=== PATIENT | female | born 2000 | race Caucasian/White ===

== ENCOUNTER 2022-06-14 11:43 | Emergency (ER) | payer SELFPAY ==
[2022-06-14] VITALS (19 sets, daily range): BP systolic 112–139; BP diastolic 65–80; PULSE 83–114; RESP 13–27; TEMP 36.4; O2SAT 98–100
--- NOTE | ~2022-06-14 | XR_ITS ---
EXAMINATION: XR chest 2V 06/14/2022 12:25 INDICATION: Upper back pain with inspiration PROCEDURE: 2 view chest COMPARISON: No prior studies for comparison. FINDINGS: The lungs are clear. The cardiomediastinal silhouette is within normal limits. There are no pleural effusions. There is no pneumothorax suspected. There is scoliosis. IMPRESSION: 1: NO ACUTE CARDIOPULMONARY DISEASE. Reviewed, dictated and finalized at location [facility]
--- NOTE | 2022-06-14 12:03 | ECG_ITS ---
Measurements Intervals [place] Rate: 90 P: 63 UT: 137 QRS: 56 QRSD: 91 T: 0 QT: 351 QTc: 430 Interpretive Statements SINUS RHYTHM WITH SINUS ARRHYTHMIA POSSIBLE RIGHT VENTRICULAR CONDUCTION DELAY [RSR (QR) IN V1/V2] NONSPECIFIC ST & T-WAVE ABNORMALITY NO PREVIOUS ECG AVAILABLE FOR COMPARISON Electronically Signed On 06-14-2022 20:08:29 TECHNICAL APPLICATIONS SCIENTIST by Cecilia De Santiago M.D.
[2022-06-14 12:38] LABS: Basophils Absolute Auto 0.06 K/mm3 (0.00-0.10); Basophils Percent Auto 0.7 % (0.0-1.0); Eosinophils Absolute Auto 0.07 K/mm3 (0.02-0.50); Eosinophils Percent Auto 0.8 % (1.0-6.0); Hematocrit 35.6 % (35.0-49.0); Hemoglobin 12.3 g/dL (12.0-15.0); Immature Granulocyte Absolute 0.02 K/mm3 (0.00-0.00); Immature Granulocyte Percent A 0.2 % (0.0-0.0); Lymphocytes Absolute Auto 1.88 K/mm3 (1.10-4.50); Lymphocytes Percent Auto 22.7 % (18.0-42.0); Mean Corpuscular HGB Conc 34.6 g/dL (32.0-36.0); Mean Corpuscular Hemoglobin 29.9 pg (27.0-31.0); Mean Corpuscular Volume 86.6 fL (78.0-102.0); Mean Platelet Volume 10.8 fl (9.2-11.8); Monocytes Absolute Auto 0.43 K/mm3 (0.10-0.90); Monocytes Percent Auto 5.2 % (2.0-11.0); Neutrophils Absolute Auto 5.8 K/mm3 (1.7-7.2); Neutrophils Percent Auto 70.4 % (50.0-70.0); Platelet Count Result 242 K/mm3 (150-420); Red Blood Count 4.11 M/mm3 (4.20-5.40); Red Cell Distribution Width 12.6 % (11.6-14.4); White Blood Count 8.3 K/mm3 (4.8-10.8)
[2022-06-14 12:40] LABS: Add Urine Microscopic? YES; Appearance Urine Clear (Clear); Bilirubin Urine Negative (Negative); Blood Urine Negative (Negative); Color Urine Light Yellow (Yellow); Glucose Urine UA Negative (Negative); Ketones Urine Negative (Negative); Leukocyte Esterase Ur 1+ LEU/UL (Negative); Nitrate Urine Positive (Negative); Protein Urine Negative (Negative); Urobilinogen Urine 0.2 mg/dL (0.2-1.0)
[2022-06-14 12:47] LABS: RBC Urine None seen /hpf (0-2)
[2022-06-14 12:48] LABS: Bacteria Urine 3+ /hpf; Squamous Epithelial Cell Urine Rare /hpf (Few)
[2022-06-14 12:52] LABS: D Dimer 0.19 mg/L (0.19-0.50)
[2022-06-14 12:56] LABS: Lactic Acid Reflex 1.7 mmol/L (0.4-2.0)
[2022-06-14 13:06] LABS: Alanine Aminotransferase 11 U/L (14-59); Albumin Level 4.1 g/dL (3.4-5.0); Alkaline Phosphatase 64 U/L (46-116); Anion Gap 7 mmol/L (8-16); Aspartate Amino Transferase < 10 U/L (15-37); Bilirubin,Total 0.3 mg/dL (0.00-1.00); Blood Urea Nitrogen 11 mg/dL (7-18); Calcium 8.6 mg/dL (8.5-10.1); Carbon Dioxide 27 mmol/L (21-32); Chloride 104 mmol/L (98-108); Estimated Glomerular Filt Rate > 60; Glucose 146 mg/dL (70-99); Osmolality Calculated 288 mOsm/kg (285-295); Potassium 3.9 mmol/L (3.5-5.1); Sodium 138 mmol/L (136-145); Total Protein 7.1 g/dL (6.4-8.2)
[2022-06-14 13:10] LABS: CRP < 0.5 mg/dL (0.0-0.9); Troponin I < 4.0 ng/L (0.00-60.4)
[2022-06-14 13:20] LABS: Influenza A QL RT-PCR Negative (Negative); Influenza B QL RT-PCR Negative (Negative); SARS-CoV-2 RNA PCR Negative (Negative)
--- NOTE | 2022-06-14 13:56 | ED.GENADULT ---
HPI - General Adult General Chief complaint: Chest Pain Stated complaint: Chest pain,Dizzy spells Time Seen by Provider: 06/14/22 11:51 Source: patient and family Mode of arrival: ambulatory Limitations: no limitations History of Present Illness HPI narrative: This is a 22-year-old female who presents with some episodes of tachycardia with some chest tightness with no shortness of breaths no fever chills initially heart rate was 114 felt anxious no significant past medical history no abdominal pain no dysuria Onset (ago): hour(s) Related Data Allergies Allergy/AdvReac Type Severity Reaction Status Date / Time No Known Allergies Allergy Verified 06/14/22 12:14 Review of Systems Review of Systems: All systems reviewed & are unremarkable except as noted in HPI and below PMFSH Past Medical History Medical History Patient denies medical problems Exam Const: General: healthy appearing and no acute distress Nutritional Appearance: well nourished Limitations: no limitations HENMT: Head: normal to inspection Face/Nose/Sinus: Normal external nose present Mouth: Yes Normal oral and palatal mucosa present Throat: posterior oropharynx normal Eyes: Conjunctivae: conjunctivae normal Pupils: Equal, round and reactive pupils present EOM: EOMs intact bilaterally Direct Ophthalmoscopy: no photophobia Neck: Neck: normal visual inspection Chest: Chest palpation & inspection: normal inspection of the chest Resp: Effort & Inspection: normal respiratory effort Auscultation: clear to auscultation bilaterally Cardio: Rate: regular rate Rhythm: regular rhythm GI: GI Palp: Yes Soft to palpation Auscultation: normal bowel sounds : General: Yes bladder normal to palpation Urinary Catheter: Urinary Catheter: patent and draining Back/Spine/Pelvis: Back: no CVA tenderness Skin: General skin exam: normal color Rashes: no rashes Wounds: no wounds Neuro: General: patient oriented x3 Cranial nerves: Yes Nystagmus not present Speech: normal speech Extrem: General: normal to inspection Psych: Mental Status: mental status grossly normal Affect: Anxious affect present Course Course Emergency Course: EKG and labs are reviewed with patient patient stable feels much better. Vital Signs Vital signs: Vital Signs Temperature 36.4 C L 06/14/22 11:54 Pulse Rate 114 H 06/14/22 11:54 Respiratory Rate 16 06/14/22 11:54 Blood Pressure 139/70 12/15/22 11:54 Pulse Oximetry 100 06/14/22 11:54 Oxygen Delivery Room Air 06/14/22 11:54 Temperature 36.4 C L 06/14/22 11:54 Pulse Rate 114 H 06/14/22 11:54 Respiratory Rate 16 06/14/22 11:54 Blood Pressure 139/70 06/14/22 11:54 Pulse Oximetry 100 06/14/22 13:51 Oxygen Delivery Room Air 06/14/22 13:51 Medical Decision Making Vital Signs Vital Signs: Vital Signs Temperature 36.4 C L 06/14/22 11:54 Pulse Rate 114 H 06/14/22 11:54 Respiratory Rate 16 06/14/22 11:54 Blood Pressure 139/70 06/14/22 11:54 Pulse Oximetry 100 06/14/22 11:54 Oxygen Delivery Room Air 06/14/22 11:54 Temperature 36.4 C L 06/14/22 11:54 Pulse Rate 114 H 06/14/22 11:54 Respiratory Rate 16 06/14/22 11:54 Blood Pressure 139/70 06/14/22 11:54 Pulse Oximetry 100 06/14/22 13:51 Oxygen Delivery Room Air 06/14/22 13:51 Lab Data 06/14/22 12:28 06/14/22 12:28 Labs: Lab Results 06/14/22 06/14/22 06/14/22 Range/Units 12:28 12:28 12:28 WBC 8.3 (4.8-10.8) K/mm3 RBC 4.11 L (4.20-5.40) M/mm3 Hgb 12.3 (12.0-15.0) g/dL Hct 35.6 (35.0-49.0) % MCV 86.6 (78.0-102.0) fL MCH 29.9 (27.0-31.0) pg MCHC 34.6 (32.0-36.0) g/dL RDW 12.6 (11.6-14.4) % Plt Count 242 (150-420) K/mm3 MPV 10.8 (9.2-11.8) fl Immature Gran % (Auto) 0.2 H (0.0-0.0) % Neut % (Auto) 70.4 H (50.0-70.0) % Lymph % (Auto)
--- NOTE | 2022-06-16 13:58 | PC.NURSE ---
discussed with dr kwon, abnormal urine culture results. per dr kwon, no need for abt , asymptomatic bacteriemia.
== END 2022-06-14 14:10 | disposition home or self-care (01) ==
PROVIDERS: Emergency Provider Emergency Medicine
DX: F41.9 Anxiety disorder, unspecified (principal); R07.89 Other chest pain; Z20.822 Contact with and (suspected) exposure to COVID-19
CPT/HCPCS: 71046; 80053; 81001; 83605; 84443; 84484; 85025; 85380; 86140; 87077; 87086; 87088; 87186; 87636; 93005; 99284